=== PATIENT | male | born 2000 | race Caucasian/White ===

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

== ENCOUNTER 2019-02-10 22:44 | Emergency (ER) | payer OTHER ==
[2019-02-10] MEDS ORDERED: methylPREDNISolone SOD SUCC 125 MG/2 ML VIAL IVP ONE (22:47)
[2019-02-10] MEDS ORDERED: FAMOTIDINE 20 MG/NACL 50 ML IV ONE (22:47)
--- NOTE | 2019-02-10 22:50 | EDPHY ---
H & P Time Seen by Provider: 02/10/19 22:48 HPI/ROS: Chief Complaint: Allergic reaction HPI: 18-year-old male who has a known allergy to peanuts. Patient states that approximately 30 min ago he ate what he thought was a regular pretzel. After he bit into it he noticed that it was chewier than he thought. He noticed a taste peanuts and checked the wrapper and notice that there was indeed peanut butter. He took 50 mg of Benadryl orally. He also rinsed his mouth several times with water. He then says he started getting this sensation of tightness in his throat so he gave himself his EpiPen intramuscularly. Patient states he feels much better now. Currently is without complaint. EMS placed an IV in his left AC but have not administered any medications. Denies other medical history. No fevers or chills. No cough. No rash. ROS: 10 systems were reviewed and were negative except those elements noted in the HPI. PMH: Peanut allergy Social History: No smoking, occasional alcohol Family History: non-contributory Physical Exam: Gen: Awake, Alert, No Distress HEENT: Nose: no rhinorrhea Eyes: PERRLA, EOMI Mouth: Moist mucosa Neck: Supple, no JVD Chest: nontender, lungs clear to auscultation Heart: S1, S2 normal, no murmur Abd: Soft, non-tender, no guarding Back: no CVA tenderness, no midline tenderness Ext: no edema, non-tender Skin: no rash Neuro: CN II-XII intact, Sensation grossly intact, Strength 5/5 in bilateral upper and lower extremities - Medical/Surgical History Hx Asthma: Yes Hx Chronic Respiratory Disease: No Hx Diabetes: No Hx Cardiac Disease: No Hx Renal Disease: No Hx Cirrhosis: No Hx Alcoholism: No Hx HIV/AIDS: No Hx Splenectomy or Spleen Trauma: No Other PMH: PMHx: childhood asthma. PSHx: back - Social History Smoking Status: Never smoked Constitutional: Initial Vital Signs Temperature (C) 36.8 C 02/10/19 22:47 Heart Rate 89 02/10/19 22:47 Respiratory Rate 16 02/10/19 22:47 Blood Pressure 169/95 H 02/10/19 22:47 O2 Sat (%) 95 02/10/19 22:47 O2 Delivery Mode Room Air Allergies/Adverse Reactions: egg [eggs] Allergy (Verified 02/10/19 22:46) Milk Containing Products [dairy] Allergy (Verified 02/10/19 22:46) peanut Allergy (Verified 02/10/19 22:46) Home Medications: Medication Instructions Recorded Epipen 0.3 MG 02/10/19 Medical Decision Making ED Course/Re-evaluation: Patient has been observed in the emergency department. I have no further allergy symptoms. He has epinephrine injections at home and does not need a prescription. Will discharge with follow-up with primary care, return for any concerns. - Data Points Medications Given: Discontinued Medications Famotidine/Sodium Chloride (Pepcid 20 Mg (Premix)) 50 mls @ 200 mls/hr IV EDNOW ONE Stop: 02/10/19 23:01 Last Admin: 02/10/19 22:54 Dose: 50 mls Sodium Chloride (Ns) 1,000 mls @ 0 mls/hr IV ONCE ONE; Wide Open PRN Reason: Protocol Stop: 02/10/19 22:53 Last Admin: 02/10/19 22:54 Dose: 1,000 mls Methylprednisolone Sodium Succinate (Solu-Medrol) 125 mg IVP EDNOW ONE Stop: 02/10/19 22:48 Last Admin: 02/10/19 22:53 Dose: 125 mg Departure - Departure Disposition: Home, Routine, Self-Care Clinical Impression: Allergic reaction Condition: Good Instructions: General Allergic Reaction (ED) Additional Instructions: Return to the emergency department for increasing shortness of breath, difficulty swallowing or breathing, rash, lightheadedness, fainting, or any other concerns. Referrals: [facility],. [Clinic] - As per Instructions
[2019-02-10] MEDS ORDERED: NS 1,000 ML IV ONE (22:52)
[2019-02-10 23:56] VITALS: BP 120/6
== END 2019-02-11 00:30 | disposition home or self-care (01) ==
LOC: EDUNIT#
DX: T78.01XA Anaphylactic reaction due to peanuts, initial encounter (principal); E86.9 Volume depletion, unspecified
CPT/HCPCS: 96374; J2930